=== PATIENT | female | born 1950 | race Caucasian/White ===

== ENCOUNTER → 2017-04-04 | Outpatient (CLI) | payer MEDICARE, BC ==
[~2017-04-04] MED LIST: COZAAR25 MG PO; COZAAR50 MG PO; GLUCOPHAGE500 MG PO; IMITREX6 MG/0.5 M SUB-Q; NORCO 5-325 TA1 EACH PO; PAXIL40 M1 PO; PROAIR HFA8.5 GM INH; PROTONIX20 MG PO; TOPROL XL100 MG PO; TYLENOL325 MG PO; XANAX0.5 MG PO; XARELTO15 MG PO; ZOFRAN4 MG PO
[2017-04-04 10:24] LABS: ALBUMIN 3.4 gm/dL (3.5-5.0); ANION GAP 11.2 (10.0-19.0); CALCIUM 8.5 mg/dL (8.5-10.5); CREATININE 1.4 mg/dL (0.5-1.1); POTASSIUM 4.2 mMol/L (3.7-5.1); TOTAL BILIRUBIN 0.6 mg/dL (0.0-1.5); TOTAL PROTEIN 6.7 g/dL (6.0-8.4)
== END | disposition disaster alternative care site (69) ==
LOC: LNHI 10:07
PROVIDERS: Internal Medicine Interventional Cardiology
DX: I42.8 Other cardiomyopathies (principal); I44.7 Left bundle-branch block, unspecified; I47.2 Ventricular tachycardia; I48.0 Paroxysmal atrial fibrillation; I50.42 Chronic combined systolic (congestive) and diastolic (congestive) heart failure